=== PATIENT | male | born 1975 | race African-American/Black ===

== ENCOUNTER 2022-10-03 13:23 | Emergency (ER) | payer OTHER ==
[~2022-10-03] VITALS: Ht 182.9 cm; Wt 127.0 kg
[2022-10-03 13:28] VITALS: BP 103/77
[2022-10-03 14:22] LABS: BASOPHILS % (AUTO) 0.6 % (0.0-2.0); EOSINOPHILS # (AUTO) 0.1 K/uL (0-0.4); EOSINOPHILS % (AUTO) 2.7 % (0.0-4.0); HEMATOCRIT 29.8 % (36-52); HEMOGLOBIN 9.7 g/dL (12.0-18.0); LYMPHOCYTES # (AUTO) 0.4 K/uL (2.0-11.5); LYMPHOCYTES % (AUTO) 12.2 % (20.5-51.1); MEAN CORPUSCULAR HEMOGLOBIN 29 pg (27-31); MEAN CORPUSCULAR HGB CONC 33 g/dL (33-37); MEAN CORPUSCULAR VOLUME 87.4 fL (80-94); MONOCYTES # (AUTO) 0.5 K/uL (0.8-1.0); MONOCYTES % (AUTO) 13.4 % (1.7-9.3); NEUTROPHILS # (AUTO) 2.4 K/uL (1.8-7.7); NEUTROPHILS % (AUTO) 71.1 % (42.2-75.2); PLATELET COUNT (AUTO) 142 K/uL (140-450); RED BLOOD CELL COUNT(AUTO) 3.41 MIL/uL (4.20-6.10); RED CELL DISTRIBUTION WIDTH 16.2 % (11.6-13.7); WHITE BLOOD COUNT (AUTO) 3.4 K/uL (4.8-10.8)
[2022-10-03 14:36] LABS: ALBUMIN 3.1 g/dL (3.4-5.0); ANION GAP 21.6 (8-16); CARBON DIOXIDE 13.1 mmol/L (21-32); POTASSIUM 4.7 mmol/L (3.5-5.1); TOTAL BILIRUBIN 0.3 mg/dL (0.0-1.0)
[2022-10-03 14:40] LABS: CREATININE 10.5 mg/dL (0.6-1.3)
--- NOTE | 2022-10-03 15:09 | NUR ---
Dr. Chung evaluating patient at bedside.
[2022-10-03] MEDS ORDERED: ONDANSETRON 4 MG/2 ML VIAL IVP ONE (15:15)
[2022-10-03] MEDS ORDERED: NACL 0.9% 1,000 ML IV ONE (15:15)
[2022-10-03] MEDS ORDERED: NACL 0.9% 500 ML IV ONE (15:25)
--- NOTE | 2022-10-03 15:26 | NUR ---
46 y/o male biba from home with c/o diarrhea, abdominal pain and weakness x 6 days. Denies any fever, chills or SOB. Patient denies taking any medication. Medical History: ESRD, DM2, Right Shunt (no Dialysis) ALLERGY: ZOLOFT, DULOXETINE
[2022-10-03] MEDS ORDERED: LOPE-289 PO (15:34)
[2022-10-03] MEDS ORDERED: ONDA8TAB87 PO (15:34)
[2022-10-03] MEDS ORDERED: CIPR500T4 PO (15:34)
--- NOTE | 2022-10-03 16:20 | NUR ---
Patient ambulated to the restroom.
[2022-10-03 17:17] VITALS: BP 150/74
--- NOTE | 2022-10-03 17:17 | NUR ---
The patient's care was reviewed and supervised by Jamal Teague RN.
--- NOTE | 2022-10-03 17:17 | NUR ---
Patient discharged with v/s stable. Written and verbal after care instructions given. Patient alert, oriented and verbalized understanding of instructions. Ambulatory with steady gait. All questions addressed prior to discharge. ID band removed. Patient advised to follow up with PMD. Rx of Cipro, Immodium and Zofran given. Opportunity to ask questions provided and answered.
== END 2022-10-03 17:17 | disposition home or self-care (01) ==
LOC: MED 13:23
DX: R11.2 Nausea with vomiting, unspecified (principal); R19.7 Diarrhea, unspecified; R10.9 Unspecified abdominal pain; R06.02 Shortness of breath; E11.9 Type 2 diabetes mellitus without complications; I10 Essential (primary) hypertension; F12.90 Cannabis use, unspecified, uncomplicated; Z90.49 Acquired absence of other specified parts of digestive tract; Z88.8 Allergy status to other drugs, medicaments and biological substances
CPT/HCPCS: 36415; 80053; 83690; 85025; 96360; 99283